=== PATIENT | female | born 1950 | race Two or more races ===

== ENCOUNTER 2020-07-30 10:49 | Outpatient (CLI) | payer OTHER | END 2020-07-30 10:52 | disposition home or self-care (01) | LOC: RAD 10:49 | PROVIDERS: ATTEND Orthopaedic Surgery Foot and Ankle Surgery | DX: M43.8X4 Other specified deforming dorsopathies, thoracic region (principal); M43.26 Fusion of spine, lumbar region; M41.26 Other idiopathic scoliosis, lumbar region ==